=== PATIENT | female | born 1945 | race Caucasian/White ===

== ENCOUNTER 2016-06-04 22:25 | Emergency (ER) | payer MEDICARE, BC ==
[~2016-06-04] VITALS: Ht 162.6 cm; Wt 50.0 kg
[~2016-06-04 22:25] MED LIST: PREMARIN VAG42.5 GM VG
[2016-06-04 22:35] VITALS: TEMP 97.6
[2016-06-04] MEDS ORDERED: NEXIUM 40MG40 MG (22:39)
[2016-06-04 23:19] LABS: MEAN CELL VOLUME 96 fl (80.0-100.0); MEAN CORPUSCULAR HGB CONC 33 g/dl (33.0-37.0); MEAN PLATELET VOLUME 10.2 fl (7.4-10.4); PLATELET COUNT 261 K/mm3 (130-400); RED BLOOD COUNT 3.58 M/mm3 (4.10-5.30); WHITE BLOOD COUNT 15.3 K/mm3 (4.8-10.8)
[2016-06-04 23:29] LABS: ADJUSTED CALCIUM 9.8 mg/dL (8.4-10.2); ALBUMIN 4.5 gm/dL (3.5-5.0); BILIRUBIN,TOTAL 0.6 mg/dL (0.0-1.0); CALCIUM 10.2 mg/dL (8.4-10.2); CREATININE, serum 1.02 mg/dL (0.52-1.25); TOTAL PROTEIN 7.1 gm/dL (6.4-8.2)
[2016-06-04 23:30] LABS: ADD PATHOLOGY DIFF REVIEW NO; HEMATOCRIT 34.3 % (37.0-47.0); HEMOGLOBIN 11.4 g/dl (12.5-16.0); MEAN CORPUSCULAR HEMOGLOBIN 32 pg (27.0-31.0)
[2016-06-05 00:15] LABS: BAND 6 % (0-10); EOSINOPHIL 1 % (0-4); NEUTROPHILS 30 % (42.0-75.2); TOTAL CELLS COUNTED 100
[2016-06-05 04:30] VITALS: BP 144/63; PULSE 68
== END 2016-06-05 05:05 | disposition home or self-care (01) ==
LOC: COL.ER 22:25
PROVIDERS: Emergency Medicine
DX: R11.0 Nausea (principal); K59.00 Constipation, unspecified
CPT/HCPCS: J2270; J2405; J7030; Q9967

== ENCOUNTER 2016-06-06 10:30 | Outpatient (RCR) | payer MEDICARE, BC ==
[~2016-06-06 10:30] MED LIST changes: +NEXIUM 40MG40 MG
== END 2016-08-26 | disposition home or self-care (01) ==
LOC: WSPT
DX: G12.21 Amyotrophic lateral sclerosis (principal); H15.003 Unspecified scleritis, bilateral; R26.9 Unspecified abnormalities of gait and mobility

== ENCOUNTER → 2016-07-09 | Outpatient (RCR) | payer MEDICARE, BC | END | disposition still patient (30) | LOC: WSPT → WSOT 04-10 09:45 → WSPT 04-10 11:00 → WSOT 04-30 10:00 → WSPT 05-02 10:15 → WSOT 05-14 10:00 → WSPT 05-16 10:00 → WSOT 05-21 10:00 → WSPT 05-23 10:00 → WSOT 06-04 13:15 → WSPT 06-11 10:15 | DX: H15.003 Unspecified scleritis, bilateral (principal) | CPT/HCPCS: G8978-GO; G8978-GP; G8979-GO; G8979-GP; G8987-GO; G8988-GO ==

== ENCOUNTER → 2016-09-23 | Outpatient (CLI) | payer MEDICARE, BC | LOC: COL.VAS 10:00 → COL.RAD 10:11 | DX: N20.0 Calculus of kidney (principal); N28.1 Cyst of kidney, acquired ==

== ENCOUNTER 2016-10-01 11:30 | Outpatient (RCR) | payer MEDICARE, BC | END 2016-10-09 | disposition home or self-care (01) | LOC: WSPT | DX: G12.21 Amyotrophic lateral sclerosis (principal); H15.003 Unspecified scleritis, bilateral | CPT/HCPCS: G8978-GP; G8979-GP; G8987-GO; G8988-GO ==

== ENCOUNTER 2016-10-29 10:45 | Outpatient (RCR) | payer MEDICARE, BC | END 2016-12-26 14:09 | disposition still patient (30) | LOC: WSPT 10:45 | DX: G12.29 Other motor neuron disease (principal); H15.003 Unspecified scleritis, bilateral ==